=== PATIENT | female | born 1955 | race Caucasian/White ===

== ENCOUNTER 2017-05-16 14:08 | Emergency (ER) | payer OTHER ==
[2017-05-16 14:23] VITALS: BP 135/85; PULSE 68; TEMP 97.4; BMI 19.3
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
== END 2017-05-16 16:15 | disposition home or self-care (01) ==
LOC: FER 14:08
CPT/HCPCS: 73590-TC-LT; 73610-TC-LT; 73630-TC-LT; 99284-25